=== PATIENT | female | born 2000 | race African-American/Black ===

== ENCOUNTER 2024-06-13 12:21 | Emergency (ER) | payer OTHER, SELFPAY ==
[2024-06-13 12:27] VITALS: BP 137/85; PULSE 87; RESP 16; TEMP 36.4; O2SAT 100
[2024-06-13 13:45] VITALS: BP 119/65; PULSE 95; RESP 16; O2SAT 100
[2024-06-13 13:47] LABS: BEDSIDEPREGUCG Negative (Negative)
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
== END 2024-06-13 14:39 | disposition home or self-care (01) ==
LOC: ANHED 14:26
PROVIDERS: Emergency Medicine; Emergency Provider Emergency Medicine
DX: S70.12XA Contusion of left thigh, initial encounter (principal); V43.52XA Car driver injured in collision with other type car in traffic accident, initial encounter
CPT/HCPCS: 81025; 99283